=== PATIENT | male | born 1960 | race Caucasian/White ===

== ENCOUNTER 2019-03-28 08:25 | Inpatient (IN) ==
[2019-03-28] MEDS ORDERED: NS 500 ML IV ONE (09:28)
[2019-03-28 10:23] LABS: URINE SOURCE CLEAN CATCH
[2019-03-28 10:30] LABS: BILIRUBIN URINE NEGATIVE (NEGATIVE); BLOOD URINE TRACE (NEGATIVE); COLOR YELLOW; GLUCOSE URINE NEGATIVE (NEGATIVE); KETONE URINE NEGATIVE (NEGATIVE); LEUKOCYTES URINE NEGATIVE (NEGATIVE); NITRITE URINE NEGATIVE (NEGATIVE); PROTEIN URINE NEGATIVE (NEGATIVE); SP GRAVITY URINE 1.017; TURBIDITY URINE CLEAR (CLEAR); UR EPITHELIAL CELLS <10 /HPF (<10); URINE BACTERIA NEGATIVE /HPF; URINE RBC <10 /HPF (<10); URINE WBC <10 /HPF (<10); UROBILINOGEN URINE NORMAL (NORMAL)
--- NOTE | 2019-03-28 10:42 | Diag Imaging Result Doc PS360 ---
EXAM: CT HEAD W/O CONTRAST 03/28/2019 HISTORY: double vision, disconjugate gaze TECHNIQUE: This exam was performed using automated exposure control, adjustment of mA or kV according to patient size, and/or use of iterative reconstruction technique. COMMENT: There are no previous studies. There is some encephalomalacia in the posterior temporoparietal region on the left. There is no evidence of mass effect, bleed, or abnormal extra-axial fluid collection. The visualized paranasal sinuses are clear. The calvarium is intact. 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 No evidence of acute intracranial disease. Electronically signed by Maco Valladares 03/28/2019 10:39 AM
[2019-03-28 10:49] LABS: BASO# 0.11 X1000 (0.0-0.2); BASO% 1.7 % (0.0-0.8); EOS% 1.5 % (0.0-10.0); HEMATOCRIT 43.9 % (42.0-52.0); HEMOGLOBIN 15.1 g/dL (14.0-18.0); LYMPH# 1.83 X1000 (1.2-3.4); LYMPH% 27.7 % (20.5-51.1); MCH 32.1 PG (27-31); MCHC 34.4 g/dL (33-37); MCV 93.4 FL (81-99); MONO# 0.77 X1000 (0.11-0.59); MONO% 11.6 % (1.7-9.3); MPV 11.3 FL (7.4-10.4); NEUT% 57.5 % (42.2-75.2); PLT 120 X1000 (130-400); RDW 13.2 % (11.5-14.5); WBC 6.61 X1000 (4.8-10.8)
[2019-03-28 11:11] LABS: AGAP 10; ALB/GLOB RATIO 0.7; ALBUMIN 3.6 g/dL (3.5-5.0); ALKALINE PHOSPHATASE 95 U/L (32-122); BUN 17 mg/dL (8-22); CHLORIDE 100 mmol/L (98-107); COSMO 270; CREATININE 0.7 mg/dL (0.7-1.2); ESTIMATED GFR > 60; GLUCOSE 102 mg/dL (70-104); GOT 123 U/L (10-34); GPT 92 U/L (10-44); MAGNESIUM 1.8 mg/dL (1.5-2.7); SODIUM 134 mmol/L (136-145); TCO2 24 mmol/L (25-35)
[2019-03-28 11:31] LABS: TOTAL BILIRUBIN 0.75 mg/dL (0.20-1.00)
--- NOTE | 2019-03-28 11:45 | PROVIDER DOCUMENTATION ---
HPI-Neurological Disorder - General Chief Complaint: Near Syncope Stated Complaint: SEEING DOUBLE,LT EYE COMPLAINT Time Seen by Provider: 03/28/19 09:01 Source: patient Allergies/Adverse Reactions: Patient Allergies Allergy/AdvReac Type Severity Reaction Status Date / Time No Known Allergies Allergy Verified 01/14/18 03:46 Home Medications: Home Medication List Medication Instructions Recorded Confirmed Last Taken Type Phenytoin [Dilantin] 100 mg PO BID 01/14/18 01/14/18 01/13/18 07:00 History Tramadol [Ultram] 50 mg PO Q6H PRN PRN #20 tab 01/15/18 Unknown Rx Cyclobenzaprine [Flexeril] 10 mg PO TID PRN #15 tab 08/08/18 Unknown Rx Ketorolac [Toradol] 10 mg PO Q6H PRN PRN #20 tab 08/08/18 Unknown Rx - History of Present Illness-Neuro Nature of Presenting Problem: Patient is a 58 yowm who complains of diplopia and dizziness since Saturday. Symptoms are exacerbated by walking. Pt states, "When I walk, I feel like I'm going to lose my balance and fall down." Also reports that left eye is crossing and that he did not notice it, but his brother did. Brother is with pt and states left eye is not normally crossed. Pt denies headache, chest pain, SOB, or any other symptoms. He is non-toxic in appearance. Review of Systems - Adult - REVIEW OF SYSTEMS - ADULT Constitutional: reports: no symptoms reported. denies: fever Eyes: reports: no symptoms reported Ears, Nose, Mouth & Throat: reports: no symptoms reported Cardiovascular: reports: no symptoms reported Respiratory: reports: no symptoms reported Gastrointestinal: reports: no symptoms reported Genitourinary: reports: no symptoms reported Musculoskeletal: reports: no symptoms reported Integumentary: reports: no symptoms reported Neurological: reports: see HPI Psychiatric: reports: no symptoms reported Endocrine: reports: no symptoms reported Hematologic/Lymphatic: reports: no symptoms reported Allergic/Immunologic: reports: no symptoms reported All Other Systems: Reviewed and Negative Past History - Adult - PAST MEDICAL HISTORY-ADULT Review of Records: reports: Nursing Assessment Review, Medications Reviewed, Social history reviewed & non-contributory. Major Childhood Illnesses: reports: denies history Cardiovascular: reports: denies history Respiratory: reports: denies history Gastrointestinal: reports: denies history Obstetrical/Gynecological: reports: denies history Genitourinary: reports: denies history Musculoskeletal: reports: denies history Neurological: reports: Seizures/Epilepsy, other (Porphyria) Endocrine/Immune: reports: denies history Other Conditions: reports: denies history - PRIOR SURGERIES/PROCEDURES Surgical/Procedure History: reports: reviewed, not pertinent - IMMUNIZATION STATUS Childhood Immunizations: See Nurse Assessment Flu Vaccine: See Nurse Assessment - FAMILY HISTORY Family History: reviewed, not pertinent - SOCIAL HISTORY Smoking: cigarettes, greater than 1 pack/day Physical Exam- Neurological - Physical Exam-Neuro Initial Vital Signs Reviewed: Yes General Appearance: alert, no apparent distress. negative: lethargic, slow to respond Eye Exam: right eye: EOMI (disconjugate gaze, inward deviation of left eye), bilateral eye: PERRL HENMT: normocephalic/atraumatic, moist mucous membranes, normal ENT inspection, TMs normal Head Injury: no evidence of injury Neck: non-tender, full range of motion, supple, normal inspection Respiratory: chest non-tender, lungs clear, normal breath sounds, no pleuratic chest pain, no respiratory distress, no accessory muscle use Cardiovascular: normal peripheral pulses, regular rate, rhythm, no gallop, no murmur Abdominal Exam: normal bowel sounds, non tender, soft, no pulsatile mass Extremity: normal range of motion, non-tender, 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 negative: abnormal pupil position, abnormal speech, facial asymmetry, facial droop, facial paresthesias, facial weakness, hearing deficit (R), hearing deficit (L), tongue deviation to R, tongue deviation to L Coordination/Gait: normal finger to nose Motor/Sensory: no motor deficit, no sensory deficit, no pronator drift Neurologic: grossly normal, no motor/sensory deficits Integumentary: normal color, warm/dry. negative: cyanosis, diaphoresis, j aundice, mottled, pallor Psych/Mental Status: normal mood/affect, normal thought content, normal thought process, oriented x 3 - [place] Coma Scale Best Eye Response: (4) open spontaneously Best Verbal Response: (5) oriented Best Motor Response: (6) obeys commands Progress - PLAN OF CARE/RESULTS Progress/Plan/Lab Results: Vital Signs - 8 hr 03/28/19 07:42 03/28/19 08:32 03/28/19 08:44 Temperature 98.8 F Pulse Rate 80 Respiratory Rate 18 Blood Pressure 171/91 167/102 O2 Sat by Pulse Oximetry 100 98 100 03/28/19 08:50 03/28/19 09:00 03/28/19 09:03 Temperature Pulse Rate Respiratory Rate Blood Pressure 157/97 O2 Sat by Pulse Oximetry 100 100 100 03/28/19 09:10 03/28/19 09:20 03/28/19 09:30 Temperature Pulse Rate 73 Respiratory Rate Blood Pressure O2 Sat by Pulse Oximetry 100 100 100 03/28/19 09:33 03/28/19 09:40 03/28/19 09:50 Temperature Pulse Rate 63 79 67 Respiratory Rate Blood Pressure 177/92 O2 Sat by Pulse Oximetry 100 100 100 03/28/19 10:00 03/28/19 10:10 03/28/19 10:20 Temperature Pulse Rate 71 63 Respiratory Rate Blood Pressure O2 Sat by Pulse Oximetry 100 100 100 03/28/19 11:12 03/28/19 11:20 03/28/19 11:24 Temperature Pulse Rate 78 65 64 Respiratory Rate Blood Pressure 182/109 O2 Sat by Pulse Oximetry 99 100 100 03/28/19 11:30 03/28/19 11:33 03/28/19 11:40 Temperature Pulse Rate 63 62 63 Respiratory Rate Blood Pressure 179/110 O2 Sat by Pulse Oximetry 100 100 100 03/28/19 11:50 03/28/19 12:00 03/28/19 12:03 Temperature Pulse Rate 64 64 65 Respiratory Rate Blood Pressure 179/108 O2 Sat by Pulse Oximetry 99 100 100 Laboratory Results - last 24 hr 03/28/19 03/28/19 03/28/19 10:05 10:05 10:15 WBC 6.61 RBC 4.70 Hgb 15.1 Hct 43.9 MCV 93.4 MCH 32.1 H MCHC 34.4 RDW Std Deviation 13.2 Plt Count 120 L MPV 11.3 H Immature Gran % (Auto) 0.0 Neut % (Auto) 57.5 Lymph % (Auto) 27.7 Kimble % (Auto) 11.6 H Eos % (Auto) 1.5 Baso % (Auto) 1.7 H Immature Gran # (Auto) 0.00 Neut # (Auto) 3.80 Lymph # (Auto) 1.83 Kimble # (Auto) 0.77 H Eos # (Auto) 0.10 Baso # (Auto) 0.11 Sodium 134 L Potassium 5.0 Chloride 100 Carbon Dioxide 24 L Anion Gap 10 BUN 17 Creatinine 0.7 Estimated GFR/1.73 m2 > 60 BUN/Creatinine Ratio 24 Glucose 102 Calculated Osmolality 270 Calcium 9.0 Magnesium 1.8 Total Bilirubin 0.75 AST 123 H ALT 92 H Alkaline Phosphatase 95 Total Protein 9.0 H Albumin 3.6 Globulin 5.4 Albumin/Globulin Ratio 0.7 Urine Source CLEAN CATCH Urine Color YELLOW Urine Turbidity CLEAR Urine pH 6.0 Ur Specific [place] 1.017 Urine Protein NEGATIVE Ur Glucose (Stick) NEGATIVE Ur Ketones (Stick) NEGATIVE Urine Blood TRACE A Urine Nitrite NEGATIVE Urine Bilirubin NEGATIVE Urobilinogen Dipstick NORMAL Urine Leukocytes NEGATIVE Urine WBC (Auto) <10 Urine RBC (Auto) <10 U Epithel Cells (Auto) <10 Urine Bacteria (Auto) NEGATIVE Orders Category Date Time Status Visual Acuity DIRECTED Care 03/28/19 09:[address] HEAD W/O CONTRAST [CT] Stat Exams 03/28/19 09:28 Completed CBC WITH DIFF [HEME] Stat Lab 03/28/19 10:05 Completed COMPREHENSIVE METABOLIC PANEL [CHEM] Stat Lab 03/28/19 10:05 Completed MAGNESIUM [CHEM] Stat Lab 03/28/19 10:05 Completed UA NIMS W/REFLEX CULT [URINALYSIS] Stat Lab 03/28/19 10:15 Completed 0.9% Sodium Chloride Inj [Ns] 500 ml Med 03/28/19 09:28 Discontinued IV 999 mls/hr Aspirin Med 03/28/19 12:14 Discontinued 325 mg PO NOW ONE Hydralazine [Apresoline] Med 03/28/19 12:19 Discontinued 5 mg IV NOW ONE EKG [EKG] Stat Ther 03/28/19 09:28 Ordered Result Diagrams: 03/28/19 10:05 03/28/19 10:05 - EKG 1 Time of EKG reading by physician:: 11:22 EKG Read and Signed by:: Naga Rosenthal EKG Interpretation (*Must complete 3 of following elements*): Abnormal Rate: 63 Rhythm: NSR-nonspecific ST abnormality QRS: normal ST Wave: normal - CT/MRI 1 CT Study: Head ([facility] - [address], [address], [place] [address] [facility] - [address] [place] [address] Department of Imaging Patient: ROSARIO DOAN Date: 03/28/19MR#: [id number] : 1960ADM Status: REG [facility]#: [id number] Age/Sex: 58/MRoom/Bed: Loc: ED Ordering Physician: Marcel Kang Family Physician: None,PCP Reason for Procedure: double vision, disconjugate gaze ___ Signed EXAM: CT HEAD W/O CONTRAST 03/28/2019 HISTORY: double vision, disconjugate gaze TECHNIQUE: This exam was performed using automated exposure control, adjustment of mA or kV according to patient size, and/or use of iterative reconstruction technique. COMMENT: There are no previous studies. There is some encephalomalacia in the posterior temporoparietal region on the left. There is no evidence of mass effect, bleed, or abnormal extra-axial fluid collection. The visualized paranasal sinuses are clear. The calvarium is intact. 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 No evidence of acute intracranial disease. 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 Park) Departure - Departure Date of Disposition Decision: 07/06/19 Time of Disposition Decision: 12:00 DIAGNOSIS: Diplopia, Dizziness Disposition: ADMITTED INPATIENT 09 Certified Medical Emergency: Emergent Condition: Stable Referrals and Follow-Ups: None,PCP [Primary Care Provider] - - Critical Care Note This patient required my direct & personal management of CC.: No Attestation - Physician/ THERON Attestation Patient care was provided by Advanced Practice Provider:: Yes Advanced Practice Provider:: Marcel Kang Advanced Practice Provider documentation review:: The Mid-level provider documentation, treatment plan and medical decision making was reviewed by the physician who agrees with all treatment and medical decision making by the MLP. The physician spent face to face time with patient:: No Advanced Practice Provider documentation review:: Supervising physician onsite and consulted in the evaluation and care of this patient. The physician did not have a face to face encounter with the patient. - NIH Stroke Scale Level of Consciousness: 0-Alert LOC Questions (ask month and age): 0-Answers Both Correctly Best Gaze (horizontal eye movement): 0-Normal Visual (use finger movement, counting or visual threat): 0-No Visual Loss Facial Palsy (show teeth or raise eyebrows & close eyes tght: 0-Symmetrical Movement Motor Function-left arm: 0-Normal Motor Function-right arm: 0-Normal Motor Function-left le-Normal Motor Function-right le-Normal Limb Ataxia(aefesx-kmgd-tggqaa, or heel to phillips): 0-No Ataxia Sensory(pin prick to face,arms,trunk,legs-compare side/side): 0-No Ataxia Best Language(name item/read sentence.Ex-Down to Earth): 0-No Aphasia Dysarthria(Pt read words or say words Ex.Mama,Tip-Top,Thanks: 0-Normal Ar ticulation Modified [place] Score Criteria: 1-no significant disability despite symptoms
[2019-03-28] MEDS ORDERED: ASPIRIN PO ONE (12:14)
[2019-03-28] MEDS ORDERED: APRESOLINE IV ONE (12:19)
[2019-03-28] MEDS ORDERED: ZOFRAN IV PRN (13:33)
[2019-03-28] MEDS ORDERED: TYLENOL PO PRN (13:33)
[2019-03-28] MEDS ORDERED: APRESOLINE IV PRN (14:03)
[2019-03-28] MEDS ORDERED: NS 1,000 ML IV ONE (14:05)
[2019-03-28 14:09] LABS: INR 1.11; PROTIME 15.2 Seconds (11.0-16.0)
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
[2019-03-28] MEDS: LOVENOX SUBQ SCH (15:18)
[2019-03-28] MEDS: M.V.I.-12 10 ML, FOLIC ACID 1 MG, MAGNESIUM SULFATE 1 GM, THIAMINE 100 MG in NS 1,000 ML IV SCH (15:18)
[2019-03-28] MEDS: NORCO-7.5 PO PRN ×2 (15:24→21:20)
[2019-03-28] MEDS: ATIVAN IV PRN (20:00)
[2019-03-28] MEDS ORDERED: LIPITOR PO SCH (21:00)
[2019-03-28] MEDS: DILANTIN PO SCH (21:19)
[2019-03-29 07:27] LABS: BASO# 0.09 X1000 (0.0-0.2); BASO% 1.6 % (0.0-0.8); EOS# 0.16 X1000 (0.0-0.7); EOS% 2.8 % (0.0-10.0); HEMATOCRIT 40.9 % (42.0-52.0); IMM GRAN# 0.02 X1000 (0.0-0.04); IMM GRAN% 0.3 % (0.0-0.5); LYMPH# 1.92 X1000 (1.2-3.4); LYMPH% 33.1 % (20.5-51.1); MCHC 34.2 g/dL (33-37); MCV 93.6 FL (81-99); MONO% 12.1 % (1.7-9.3); MPV 11.4 FL (7.4-10.4); NEUT# 2.91 X1000 (1.4-6.5); NEUT% 50.1 % (42.2-75.2); PLT 116 X1000 (130-400); RBC 4.37 XMIL (4.7-6.1); RDW 13.2 % (11.5-14.5)
[2019-03-29 07:59] LABS: AGAP 9; BUN 9 mg/dL (8-22); CALCIUM 8.3 mg/dL (8.8-10.2); CHLORIDE 101 mmol/L (98-107); COSMO 267; CREATININE 0.6 mg/dL (0.7-1.2); ESTIMATED GFR > 60; GLUCOSE 102 mg/dL (70-104); POTASSIUM 3.9 mmol/L (3.5-5.1); SODIUM 134 mmol/L (136-145); TCO2 24 mmol/L (25-35)
[2019-03-29] MEDS ORDERED: NORVASC PO SCH (09:00)
[2019-03-29] MEDS: M.V.I.-12 10 ML, FOLIC ACID 1 MG, MAGNESIUM SULFATE 1 GM, THIAMINE 100 MG in NS 1,000 ML IV SCH (09:05)
[2019-03-29] MEDS: ASPIRIN PO SCH (09:08)
[2019-03-29] MEDS: NORCO-7.5 PO PRN ×3 (09:09→21:09)
[2019-03-29] MEDS: DILANTIN PO SCH ×2 (09:09→20:47)
--- NOTE | 2019-03-29 11:45 | PROGRESS NOTE ---
DATE: 03/29/2019 SUBJECTIVE: Patient is resting comfortably in bed. His physical exam is benign, except for double vision. The left eye does react to light, but dysconjugate gaze with eye deviation to the bridge of the nose. His blood pressure has been elevated, so I will put this patient on amlodipine. No signs of alcohol withdrawal at this moment. OBJECTIVE: Vital Signs: Temperature 98 degrees, pulse 94, respiratory rate 18, blood pressure 160/90, oxygen saturation 100% on room air. HEENT: Head normocephalic, no trauma. PERRLA. He has a left eye deviation to the bridge of the nose. Neck: Supple. No JVD. Central trachea. Chest: Clear to auscultation. No wheezing. No rales. Abdomen: Soft, nontender, nondistended. No hepatosplenomegaly. Extremities: No edema, no clubbing, no cyanosis. Neurological: The patient is alert and oriented x3. No focal deficits. LABORATORY: WBC 5.8, hemoglobin 14, hematocrit 40.9, platelets 116,000. Sodium 134, potassium 3.9, chloride 101, bicarbonate 24, BUN 9, creatinine 0.6, glucose 102, calcium 8.3. ASSESSMENT AND PLAN: 1. Left eye deviation toward the bridge of the nose, possible cerebrovascular accident. We will do an echocardiogram, carotid ultrasound, and also we will do an MRI tomorrow. Neurology Department will evaluate this patient. 2. Hypertension. I will add amlodipine to his medications. He is not on any kind of blood pressure medication at home. Let us see how he does. 3. Epilepsy. Continue with home medication. 4. Alcohol abuse. This patient has been highly advised against alcohol use. I will continue with daily cessation education. 5. History of drug use. Continue with daily cessation education. 6. Tobacco abuse. This patient has been advised against tobacco use. I will continue with daily cessation education as well. 7. History of hepatitis C. I have requested a hepatitis profile, pending at this moment. 8. Protein-calorie malnutrition. Continue with the same diet. cc: Carlos Damico MD
[2019-03-29] MEDS: LOVENOX SUBQ SCH (13:13)
[2019-03-29] MEDS: ATIVAN IV PRN (22:54)
[2019-03-30] MEDS: NORCO-7.5 PO PRN ×4 (06:04→20:11)
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
--- NOTE | 2019-03-30 09:17 | ECHO REPORT ---
ORDER DATE: 03/28/2019 INTERPRETING PHYSICIAN: Dr. Posadas REQUESTING PHYSICIAN: CLINICAL INDICATIONS: This is a 58-year-old male with stroke. M-MODE MEASUREMENTS: Right ventricle: cm. Left ventricle end diastole: 4.3 cm. Left ventricle end systole: 2.9 cm. Posterior wall: 1.9 cm. Interventricular septum: 0.9 cm. Left atrium: 3.4 cm. Aortic root: 3.1 cm. SUMMARY OF 2-DIMENSIONAL IMAGIN. Left ventricular function is normal. Ejection fraction is estimated at 63%. There is no wall motion abnormality noted. 2. Aortic valve shows some sclerosis of the cusps. There is no stenosis. 3. Tricuspid valve looks normal with trace regurgitation. 4. Pulmonary pressure is normal, less than 25 mmHg. 5. Pulmonic valve appears to be grossly normal. Color flow mapping is unremarkable. 6. Mitral valve also appears to be grossly normal. Pulse wave Doppler of mitral inflow is normal. 7. Tissue Doppler of septal and lateral mitral annulus averages 11 cm. 8. There is no diastolic dysfunction. 9. There is no pericardial effusion, mass or thrombus. 10.The chambers do not appear to be significantly enlarged. CONCLUSIONS: In summary, this echocardiographic study appears to be unremarkable. Clinical correlation is recommended. cc: Juliano Posadas MD
[2019-03-30] MEDS: ASPIRIN PO SCH (10:09)
[2019-03-30] MEDS: DILANTIN PO SCH ×2 (10:09→20:11)
[2019-03-30] MEDS: NORVASC PO SCH ×2 (10:09→20:11)
[2019-03-30] MEDS: M.V.I.-12 10 ML, FOLIC ACID 1 MG, MAGNESIUM SULFATE 1 GM, THIAMINE 100 MG in NS 1,000 ML IV SCH (10:10)
[2019-03-30] MEDS: ATIVAN IV PRN ×3 (10:14→20:11)
[2019-03-30 10:48] LABS: HEPATITIS PROFILE ACUTE SEE COMMENTS
--- NOTE | 2019-03-30 11:44 | Diag Imaging Result Doc PS360 ---
EXAM: MRI BRAIN W/WO CONTRAST INDICATION: r/o stroke COMPARISON: CT head dated 03/28/2019. No prior MRI is available for comparison. FINDINGS: There is no evidence of acute infarct. There is focal encephalomalacia involving the left temporal parietal region, stable. Otherwise, the white matter signal is unremarkable. There is no discrete intracranial mass, mass effect, or intracranial hemorrhage. There is no evidence of abnormal intracranial enhancement. The surrounding soft tissues and bony structures are essentially unremarkable. IMPRESSION: Focal left temporoparietal encephalomalacia. No evidence of acute infarct or other acute pathology. Electronically signed by Saud Herbert 03/30/2019 11:41 AM
[2019-03-30] MEDS: LOVENOX SUBQ SCH (14:41)
--- NOTE | 2019-03-30 14:54 | PROGRESS NOTE ---
DATE: 03/30/2019 SUBJECTIVE: As per the patient, he is feeling better. He is still complaining of double vision. No acute events overnight. He has been evaluated by neurology department, pending final recommendations. OBJECTIVE: Vital Signs: Temperature 98 degrees, pulse 81, respiratory rate 16, blood pressure 139/81, oxygen saturation 100% on room air. HEENT: Head normocephalic. No trauma. PERRLA. Neck: Supple. No JVD. Central trachea. Chest: Clear to auscultation. No wheezing. No rales. Abdomen: Soft, nontender, nondistended. No hepatosplenomegaly. Extremities: No edema, no clubbing, no cyanosis. Decreased muscle mass. Neurological Examination: This patient is alert and oriented x3. His right eye lateral movement is normal. On the left side, he has good up and down gaze but he has a problem looking at his nose. No more focal deficits. Laboratory: No lab work done today. ASSESSMENT AND PLAN: 1. Left eye deviation towards the bridge of the nose, diplopia. This patient's MRI showed a focal left temporoparietal encephalomalacia. No evidence of acute infarct or other acute pathology. He has been evaluated by neurology department. I will let them to check this MRI and give the final recommendations. 2. Hypertension. I increased the dose of amlodipine to twice a day. His blood pressure has been a little bit better but we will continue to monitor. 3. Epilepsy. Continue home medication. 4. Alcohol abuse. This patient has been highly advised against alcohol use. I will continue with daily cessation education. 5. History of drug use. Also, we will continue with daily cessation education. 6. Tobacco abuse. This patient has been advised against tobacco use. I will continue with daily cessation education as well. 7. Hepatitis C. Hepatitis profile is positive for hepatitis C antibody. I discussed this with the patient. I ordered a genotype and viral load, and I will set up an appointment for him as an outpatient with gastroenterology department. 8. Protein calorie malnutrition. Continue with the same diet. cc: Carlos Damico MD
[2019-03-31] MEDS: NORCO-7.5 PO PRN ×2 (00:12→04:53)
[2019-03-31] MEDS: ATIVAN IV PRN (08:06)
--- NOTE | 2019-03-31 08:27 | PROGRESS NOTE ---
DATE: 03/31/2019 SUBJECTIVE: Mr. Cabrales has tolerated phenytoin 200 mg b.i.d. thus far. We reviewed discussion of potential phenytoin toxicity and he will report if any of that occurs. He understands his responsibility regarding driving and activities. He will report if he has seizure. OBJECTIVE: Diplopia is unchanged today. Exam shows isolated, near-complete left lateral rectus weakness as before. There is no new extraocular movement problem on limited exam today. His MRI was unremarkable. Specifically, there was no evidence of brainstem lesion or mass, and no evidence of increased intracranial pressure. ASSESSMENT AND PLAN: 1. 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 He has risk factors for ischemic problems. We discussed those and I encouraged him to be aggressive with management and specifically to quit smoking cigarettes. 2. He is a little bit tremulous today. This is likely alcohol withdrawal. We discussed the need to reduce ethanol intake intermediate and to consider abstinence. We discussed risk for withdrawal symptoms with abrupt ethanol cessation and he may consider slowly tapering his ethanol intake. I offered to see him as an outpatient. Thanks for asking Neurology to see Mr. Cabrales. cc: MD ATILIO Green III
[2019-03-31] MEDS: DILANTIN PO SCH (09:32)
[2019-03-31] MEDS: ASPIRIN PO SCH (09:32)
[2019-03-31] MEDS: M.V.I.-12 10 ML, FOLIC ACID 1 MG, MAGNESIUM SULFATE 1 GM, THIAMINE 100 MG in NS 1,000 ML IV SCH (09:33)
[2019-03-31] MEDS: NORVASC PO SCH (09:33)
[2019-03-31 10:50] LABS: HCV BY PCR SEE COMMENTS
[2019-03-31 11:34] VITALS: BP 156/90
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
== END 2019-03-31 14:11 | disposition home or self-care (01) | DRG 123 ==
LOC: ED 08:25 → 3N 14:01
PROVIDERS: ATTEND Internal Medicine
CPT/HCPCS: 70450; 70553; 80048; 80053; 80061; 80074; 81001; 83721; 83735; 85025; 85610; 87522; 87902; 93005; 93306; 93880; 97161; A9270; A9579; J0360; J1650; J2060; J3411; J3475; J7030; J7040